=== PATIENT | female | born 1995 | race Caucasian/White ===

== ENCOUNTER → 2024-03-17 14:19 | Outpatient (REF) | payer OTHER, SELFPAY | LOC: WDC 14:19 | PROVIDERS: ATTENDING PHYSICIAN Obstetrics & Gynecology; FAMILY PHYSICIAN Internal Medicine | DX: N63.10 Unspecified lump in the right breast, unspecified quadrant (principal) | CPT/HCPCS: 76642 ==

== ENCOUNTER 2024-04-10 10:15 | Emergency (ER) | payer OTHER, SELFPAY ==
[2024-04-10 10:24] VITALS: BP 127/80
--- NOTE | 2024-04-10 11:14 | ED.GENMED ---
History of Present Illness
General
Chief Complaint: Skin Problem
Source: patient
Exam Limitations: none
Time Seen by Provider: 04/10/24 10:32
Nursing documentation reviewed up to this point in time: agreed with
History of Present Illness
History of Present Illness:
29-year-old female presents emergency department complaining of ongoing skin rash that started 2 weeks ago. She saw urgent care, and dermatology. Urgent care initially thought it could have been cellulitis and prescribed her Keflex, betamethasone.
They also gave her a Medrol pack. She saw dermatology, who discontinued all meds but gave prednisone. She showed some pictures of the rash progressing.
Past History
Past History
ED Past Medical History: None
ED Past Surgical History: None
Patient has exhibited threatening behavior?: No
PSI?: No
Social History
Tobacco: Non-smoker
Alcohol: Occasional
Drug: None
Personal: Single
Living: with family
Employment: Employed ([email or web address] a lot)
Review of Systems
Review of Systems
Allergies reviewed?: Yes
All Other Systems: Not applicable
Constitutional: Reports no symptoms; Denies fever
EENT: Reports no symptoms
Respiratory: Reports no symptoms
Cardiac: Reports no symptoms
ABD/GI: Reports no symptoms
: Reports no symptoms
Musculoskeletal: Reports no symptoms
Skin: Reports itching and rash
Neurological: Reports no symptoms
Endocrine: Reports no symptoms
Hematologic/Lymphatic: Reports no symptoms
Psychiatric: Reports no symptoms
Phy Exam
Physical Exam
Physical Exam:
Physical Exam
General: no apparent distress, not acutely ill
Neck: supple. no meningeal signs. normal posterior pharynx
Heart:equal radial pulses.
HEENT: Pupils equal round reactive to light, EOMI
Lungs: no acute respiratory distress
Abdomen: normal bowel sounds. not tender. no CVAT
Neuro: alert and oriented. no focal neurological deficits
Skin: macular rash buttocks and low back
Psychiatric: well kept. interactive and cooperative
Extremities: no edema. no calf tenderness. negative homans. good distal pulses
Course
Vital Signs
Initial and Last Documented VS:
Initial Vital Signs
Temp Pulse BP Pulse Ox
99.0 F 90 127/80 99
04/10/24 10:24 04/10/24 10:24 04/10/24 10:24 04/10/24 10:24
Last Documented Vital Signs
Temp Pulse BP Pulse Ox
99.0 F 90 127/80 99
04/10/24 10:24 04/10/24 10:24 04/10/24 10:24 04/10/24 10:24
MDM/Problems Addressed
Differential Diagnosis Includes:
Cellulitis, contact dermatitis
MDM/Problems Addressed:
29-year-old female with contact dermatitis, will continue prednisone, follow-up with dermatology and primary care.
*Pulse Oximetry
Patient hypoxic: no
*Critical Care Note
Total Time (30-74mins, 75-104mins- exclusive of procedures): Not Applicable
Patient Management
Social determinants of health affecting care: Living situation
Escalation/DeEscalation of care consider admission/obs:
Admit not indicated
ED Attending Note
-
Portions of this chart may have been created with voice recognition software.� Occasional wrong word or��sound alike� substitutions may have occurred due to the inherent limitations of voice recognition software.
Discharge Plan
Departure
Patient Disposition: Home (Routine Discharge)
Date of Disposition: 04/10/24
Time of Disposition: 11:20
Patient with high blood pressure during this ER visit?: Yes
Condition: Good
Discharge Problem:
Contact dermatitis
Instructions: Contact dermatitis, BLOOD PRESSURE
Prescriptions:
New
prednisone 10 mg Tablet
See Rx Instructions .ROUTE .COMPLEX Qty: 30 0RF
Rx Instructions:
Take By Mouth:
40 mg daily x3 days, 30 mg daily x3 days,
20 mg daily x3 days, 10 mg daily x3 days.
No Action
sucralfate 1 GM/10 ML suspension
1 gm PO QIDPRN PRN (Reason: indigestion, acid reflux)
famotidine 20 MG tablet
40 mg PO HS
ondansetron 4 MG tablet,disintegrating
4 mg PO TIDPRN PRN (Reason: nausea) Qty: 15 0RF
Referrals:
Justin Davenport I., DO [Family Provider] -
Interventions
Interventions:
*Risk Screen - Suicide Last Done: 04/10/24 11:02
*General Assessment Last Done: 04/10/24 11:02
*Neglect/Abuse Screening Last Done: 04/10/24 11:02
ED- Fall Risk Assessment Last Done: 04/10/24 11:02
ED-Skin Assessment Last Done: 04/10/24 11:02
Discharge Date and Time
Print Language: PALESTINIAN
[2024-04-10 11:42] VITALS: BP 110/71
== END 2024-04-10 11:45 | disposition home or self-care (01) ==
LOC: EMR 10:15
PROVIDERS: EMERGENCY PHYSICIAN Emergency Medicine; FAMILY PHYSICIAN Internal Medicine
DX: L25.9 Unspecified contact dermatitis, unspecified cause (principal)
CPT/HCPCS: 99282